=== PATIENT | male | born 2000 | race Caucasian/White ===

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

== ENCOUNTER 2022-10-24 01:06 | Emergency (ER) | payer SELFPAY ==
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
[2022-10-24 01:09] VITALS: BP 116/69; PULSE 104; RESP 20; TEMP 37; O2SAT 99
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
== END 2022-10-24 01:46 | disposition home or self-care (01) ==
PROVIDERS: Emergency Provider Student in an Organized Health Care Education/Training Program; PCP Internal Medicine
DX: S60.221A Contusion of right hand, initial encounter (principal); W22.8XXA Striking against or struck by other objects, initial encounter
CPT/HCPCS: 90471; 99284; 73130; 99283

== ENCOUNTER 2023-06-17 22:17 | Emergency (ER) | payer MEDICAID, SELFPAY ==
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
[2023-06-17 22:23] VITALS: BP 95/70; PULSE 107; RESP 16; TEMP 36.6; O2SAT 98
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
[2023-06-17] MEDS: Omnipaque 350 MG/ML 100 ML BTL IJ (23:30)
[2023-06-17] MEDS: Normal Saline - Diluent 50 ML VIAL IJ (23:30)
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
[2023-06-18] MEDS: Ketorolac 15 MG/ML VIAL IVP (00:17)
[2023-06-18] MEDS: Acetaminophen 500 MG TAB 1000 MG PO (00:19)
== END 2023-06-18 00:27 ==
PROVIDERS: Emergency Provider Student in an Organized Health Care Education/Training Program; PCP Internal Medicine
DX: S09.90XA Unspecified injury of head, initial encounter; S11.91XA Laceration without foreign body of unspecified part of neck, initial encounter; Y04.0XXA Assault by unarmed brawl or fight, initial encounter; Z72.0 Tobacco use
CPT/HCPCS: 70498; 96372; 96374; 99285; 70450; 70486; 71046; 73030; 73080; J1885; J3490

== ENCOUNTER 2025-01-01 20:48 | Outpatient (REF) | payer MEDICAID, SELFPAY | END 2025-01-01 20:49 | disposition home or self-care (01) | LOC: LBN 20:48 | PROVIDERS: PCP Internal Medicine; Visit Provider Physician Assistant Medical | DX: J02.9 Acute pharyngitis, unspecified (principal) | CPT/HCPCS: 87070 ==

== ENCOUNTER 2025-01-29 17:42 | Emergency (ER) | payer MEDICAID, SELFPAY ==
[2025-01-29 17:43] VITALS: BP 112/56; PULSE 94; RESP 16; TEMP 36.4; O2SAT 97
[2025-01-29 17:58] VITALS: BP 112/56; PULSE 94; RESP 16; TEMP 36.4; O2SAT 97
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
[2025-01-29 18:28] VITALS: BP 112/56; PULSE 94; RESP 16; TEMP 36.4; O2SAT 97
== END 2025-01-29 18:29 | disposition home or self-care (01) ==
LOC: ER 18:33
PROVIDERS: Emergency Provider Physician Assistant; PCP Internal Medicine
DX: K04.7 Periapical abscess without sinus (principal); F17.210 Nicotine dependence, cigarettes, uncomplicated
CPT/HCPCS: 99283 ×2